=== PATIENT | male | born 1990 | race Caucasian/White ===

== ENCOUNTER 2017-04-23 15:01 | Emergency (ER) | payer OTHER ==
[~2017-04-23] VITALS: Ht 180.3 cm; Wt 77.4 kg
[2017-04-23 15:05] VITALS: BP 116/79
[2017-04-23] MEDS ORDERED: KETOROLAC 30 MG/1 ML IM ONE (16:00)
[2017-04-23] MEDS ORDERED: KETOROLAC 30 MG/1 ML ONE (16:03)
== END 2017-04-23 17:00 | disposition home or self-care (01) ==
LOC: ED 16:50
DX: R07.89 Other chest pain (principal); J40 Bronchitis, not specified as acute or chronic
CPT/HCPCS: 71020; 96372; 99284; J1885